=== PATIENT | male | born 1980 | race Caucasian/White ===

== ENCOUNTER 2018-01-23 13:57 | Inpatient (IN) | payer OTHER ==
[~2018-01-23] VITALS: Ht 190.5 cm; Wt 79.0 kg
[2018-01-23] VITALS: BP 118/63
[2018-01-23 13:40] VITALS: BP 121/67
[~2018-01-23 13:57] MED LIST: ATARAX,VISTARIL50 MG PO; HYDROXYZINE PAM50 MG PO; MIRTAZAPINE15 MG PO; NKHM PO; ZYPREXA5 MG PO
[2018-01-23 15:28] LABS: BASO % 0.2 % (0.0-1.0); EOS % 0.5 % (1.0-4.0); HEMATOCRIT 34.9 % (42.0-52.0); HEMOGLOBIN 11.7 g/dl (14.0-18.0); LYMPH # 1.3 10*3/uL (1.3-4.4); LYMPH % 21.9 % (27.0-41.0); MEAN CELL VOLUME 92.6 fl (80.0-94.0); MEAN CORPUSCULAR HGB CONC 33.5 g/dl (33.0-37.0); MONO # 0.5 10*3/uL (0.1-1.0); MONO % 8.6 % (3.0-9.0); NEUT # 4.1 10*3/uL (2.3-7.9); NEUT % 68.6 % (47.0-73.0); PLATELET COUNT AUTOMATED 151 10*3/uL (130-400); RED BLOOD COUNT 3.77 10*6/uL (4.50-5.90); RED CELL DISTRI WIDTH 12.4 % (0-14.5); WHITE BLOOD COUNT 5.9 10*3/uL (4.8-10.8)
[2018-01-23 15:43] LABS: ALBUMIN 3.2 gm/dl (3.1-4.5); ALKALINE PHOSPHATASE 53 U/L (45-117); BUN 9 mg/dl (7-24); CHLORIDE 101 mmol/L (98-107); LIPASE 161 U/L (73-393); POTASSIUM 3.6 mmol/L (3.5-5.1); SGOT/AST 66 IU/L (3-35); SGPT/ALT 54 U/L (12-78); SODIUM 136 mmol/L (136-145); TOTAL PROTEIN 6.9 gm/dL (6.4-8.2)
[2018-01-23 15:48] LABS: INTERNATIONAL NORM RATIO 0.9 (2.0-3.5)
[2018-01-23 15:50] LABS: ETHYL ALCOHOL < 3.0 mg/dl (<3)
[2018-01-23 16:34] LABS: BILIRUBIN NEGATIVE (NEGATIVE); BLOOD NEGATIVE (NEGATIVE); CLARITY CLEAR (CLEAR); COLOR YELLOW (YELLOW); GLUCOSE NEGATIVE (NEGATIVE); KETONE NEGATIVE (NEGATIVE); LEUKO ESTERASE NEGATIVE (NEGATIVE); NITRITE NEGATIVE (NEGATIVE); PH 6.5 (5.0-9.0); UROBILINOGEN 0.2 E.U./dl (0.2-1.0)
[2018-01-23 16:43] LABS: BACTERIA TRACE; RBC 0-2 rbc/hpf (0-2)
[2018-01-23 16:44] LABS: URINE AMPHETAMINES < 1000 (1000ng/ml); URINE BARBITURATES < 200 (200ng/ml); URINE BENZODIAZEPINES < 200 (200ng/ml); URINE CANNABINOIDS (THC) > 50 (50ng/ml); URINE COCAINE > 300 (300ng/ml); URINE METHADONE < 300 (300ng/ml); URINE OPIATES > 300 (300ng/ml)
[2018-01-23 16:47] LABS: URINE PHENCYCLIDINE < 25 (25ng/ml)
[2018-01-23 20:00] VITALS: BP 127/87
[2018-01-24 08:00] VITALS: BP 137/78
[2018-01-24 12:00] VITALS: BP 118/70
[2018-01-24 16:00] VITALS: BP 127/78
[2018-01-24 22:00] VITALS: BP 127/82
[2018-01-25 00:17] VITALS: BP 133/77
[2018-01-25 08:00] VITALS: BP 112/78
[2018-01-25 12:00] VITALS: BP 114/72
[2018-01-25 16:00] VITALS: BP 114/72
[2018-01-25 20:00] VITALS: BP 129/87
[2018-01-26] VITALS: BP 123/72
[2018-01-26 08:00] VITALS: BP 114/82
== END 2018-01-26 11:44 | disposition left against medical advice (07) | DRG 894 ==
LOC: 5E 13:57
PROVIDERS: Hospitalist; Student in an Organized Health Care Education/Training Program
DX: F11.23 Opioid dependence with withdrawal (principal); B19.20 Unspecified viral hepatitis C without hepatic coma; F15.10 Other stimulant abuse, uncomplicated; F31.9 Bipolar disorder, unspecified; F41.9 Anxiety disorder, unspecified; Z71.6 Tobacco abuse counseling; F17.200 Nicotine dependence, unspecified, uncomplicated; G25.81 Restless legs syndrome; Z79.4 Long term (current) use of insulin; Z90.49 Acquired absence of other specified parts of digestive tract; Z88.0 Allergy status to penicillin; Z88.1 Allergy status to other antibiotic agents; Z81.8 Family history of other mental and behavioral disorders; Z82.49 Family history of ischemic heart disease and other diseases of the circulatory system; Z53.21 Procedure and treatment not carried out due to patient leaving prior to being seen by health care provider

== ENCOUNTER 2021-02-20 15:59 | Inpatient (IN) | payer OTHER ==
[~2021-02-20] VITALS: Ht 190.5 cm; Wt 86.2 kg
[2021-02-20 16:08] VITALS: BP 125/85
[2021-02-20] MEDS ORDERED: SEROQUEL200 MG PO (16:24)
[2021-02-20] MEDS ORDERED: TRILEPTAL300 MG PO (16:25)
[2021-02-20 16:28] LABS: BASO % 0.2 % (0.0-1.0); EOS # 0.1 10*3/uL (0.0-0.4); EOS % 2.5 % (1.0-4.0); HEMATOCRIT 39.8 % (42.0-52.0); LYMPH # 1.8 10*3/uL (1.3-4.4); LYMPH % 31.5 % (27.0-41.0); MEAN CELL VOLUME 92.6 fl (80.0-94.0); MEAN CORPUSCULAR HGB 32.3 pg (27.0-31.0); MEAN CORPUSCULAR HGB CONC 34.9 g/dl (33.0-37.0); MEAN PLATELET VOLUME 8.4 fl (9.6-12.3); MONO # 0.6 10*3/uL (0.1-1.0); MONO % 10.6 % (3.0-9.0); NEUT # 3.1 10*3/uL (2.3-7.9); PLATELET COUNT AUTOMATED 222 10*3/uL (130-400); RED CELL DISTRI WIDTH 11.6 % (0-14.5); WHITE BLOOD COUNT 5.6 10*3/uL (4.8-10.8)
[2021-02-20 16:39] LABS: ACT PARTIAL THROMBO TIME 26.2 SECONDS (20.0-32.1)
[2021-02-20 17:05] LABS: ALBUMIN 4.3 gm/dl (3.1-4.5); ALKALINE PHOSPHATASE 73 U/L (45-117); BUN 16 mg/dl (7-24); CHLORIDE 109 mmol/L (98-107); CREATININE 0.93 mg/dL (0.70-1.30); POTASSIUM 4.1 mmol/L (3.5-5.1); SGOT/AST 46 IU/L (3-35); SGPT/ALT 62 U/L (12-78); SODIUM 139 mmol/L (136-145); TOTAL PROTEIN 7.8 gm/dL (6.4-8.2)
[2021-02-20 17:23] LABS: BILIRUBIN 1+ (Negative); BLOOD Negative (Negative); CLARITY Clear (Clear); COLOR Dark Yellow (Yellow); GLUCOSE Negative (Negative); KETONE Negative (Negative); LEUKO ESTERASE Negative (Negative); NITRITE Negative (Negative); SPECIFIC GRAVITY >= 1.030 (1.001-1.030)
[2021-02-20 17:42] LABS: BACTERIA TRACE; MUCOUS 1+
[2021-02-20 18:38] VITALS: BP 1154/79
[2021-02-21] VITALS: BP 130/79
[2021-02-21 08:00] VITALS: BP 108/72
[2021-02-21 12:00] VITALS: BP 122/80
[2021-02-21 16:17] VITALS: BP 107/69
[2021-02-21 18:19] LABS: URINE AMPHETAMINES < 1000 (1000ng/ml); URINE BARBITURATES < 200 (200ng/ml); URINE BENZODIAZEPINES < 200 (200ng/ml); URINE CANNABINOIDS (THC) < 50 (50ng/ml); URINE COCAINE < 300 (300ng/ml); URINE METHADONE < 300 (300ng/ml); URINE OPIATES < 300 (300ng/ml); URINE PHENCYCLIDINE < 25 (25ng/ml)
[2021-02-21 20:00] VITALS: BP 132/94
[2021-02-22] VITALS: BP 140/85
[2021-02-22 07:50] VITALS: BP 111/66
[2021-02-22 08:00] VITALS: BP 128/77
[2021-02-22 12:00] VITALS: BP 128/74
[2021-02-22 16:00] VITALS: BP 122/87
[2021-02-22 20:00] VITALS: BP 130/92
[2021-02-23] VITALS: BP 125/75
[2021-02-23 08:12] VITALS: BP 131/89
== END 2021-02-23 11:38 | disposition home or self-care (01) | DRG 773 ==
LOC: ED 15:59 → 5E 16:27 → EDHOLD 16:27 → 5E 20:02
PROVIDERS: Emergency Medicine; Hospitalist; ADMIT Internal Medicine; ATTEND Internal Medicine
DX: F11.23 Opioid dependence with withdrawal (principal); F15.10 Other stimulant abuse, uncomplicated; R76.8 Other specified abnormal immunological findings in serum; F41.9 Anxiety disorder, unspecified; G25.81 Restless legs syndrome; F31.9 Bipolar disorder, unspecified; D64.9 Anemia, unspecified; E87.8 Other disorders of electrolyte and fluid balance, not elsewhere classified; F14.10 Cocaine abuse, uncomplicated; Z71.6 Tobacco abuse counseling; Z88.1 Allergy status to other antibiotic agents; Z88.0 Allergy status to penicillin; Z90.49 Acquired absence of other specified parts of digestive tract; Z81.8 Family history of other mental and behavioral disorders; Z82.49 Family history of ischemic heart disease and other diseases of the circulatory system; Z72.0 Tobacco use

== ENCOUNTER 2023-06-27 14:48 | Emergency (ER) | payer OTHER ==
[~2023-06-27] VITALS: Ht 190.5 cm; Wt 83.9 kg
== END 2023-06-27 16:50 | disposition left against medical advice (07) ==
LOC: ED 14:48
DX: M54.50 Low back pain, unspecified (principal); Z53.21 Procedure and treatment not carried out due to patient leaving prior to being seen by health care provider

== ENCOUNTER → 2023-06-27 | Emergency (ER) | payer OTHER ==
[~2023-06-27] MED LIST changes: +SEROQUEL200 MG PO; +TRILEPTAL300 MG PO
== END ==
LOC: ED 13:35
DX: M54.50 Low back pain, unspecified (principal); Z53.21 Procedure and treatment not carried out due to patient leaving prior to being seen by health care provider